=== PATIENT | female | born 1945 | race Caucasian/White ===

== ENCOUNTER 2025-04-20 06:17 | Day surgery (SDC) | payer OTHER ==
[2025-04-15 14:28] VITALS: BMI 25.4
[2025-04-20 07:25] VITALS: RESP 18
[2025-04-20] MEDS ORDERED: PROPOFOL 160 ML ONE (07:26)
[2025-04-20] MEDS ORDERED: LIDOCAINE HCL/PF 2% SDV 5ML VIAL ONE (07:26)
[2025-04-20 08:43] VITALS: PULSE 72; TEMP 97.1
[2025-04-20 09:28] VITALS: BP 136/74
== END 2025-04-20 09:28 | disposition home or self-care (01) ==
LOC: FASU-ENDO 06:17
PROVIDERS: ATTEND Internal Medicine Gastroenterology
PROC: 0DJD8ZZ Inspection of Lower Intestinal Tract, Via Natural or Artificial Opening Endoscopic (ICD-10-PCS; principal; 2025-04-20 08:11)
DX: Z12.11 Encounter for screening for malignant neoplasm of colon (principal); K57.30 Diverticulosis of large intestine without perforation or abscess without bleeding; K64.4 Residual hemorrhoidal skin tags